=== PATIENT | female | born 1950 | race Caucasian/White ===

== ENCOUNTER 2020-07-11 06:15 | Day surgery (SDC) | payer MEDICARE ==
[~2020-07-11] VITALS: Ht 162.6 cm; Wt 80.0 kg
[~2020-07-11 06:15] MED LIST: SODIUM CHLORIDE 0.9% 1,000 ML ONE
[2020-07-11] MEDS ORDERED: LIDOCAINE 2% 30 ML JELLY TP ONE (06:16)
[2020-07-11] MEDS ORDERED: ALBUTEROL SULFATE 2.5 MG/0.5 ML NEB SOLUTION NEB ONE (06:16)
[2020-07-11] MEDS ORDERED: BENZOCAINE 20% 50 MCG/SPRAY 57 GM TP ONE (06:16)
[2020-07-11] MEDS ORDERED: SODIUM CHLORIDE 0.9% 1,000 ML IV ONE (06:30)
[2020-07-11] MEDS ORDERED: AMLO-257 PO (07:39)
[2020-07-11] MEDS ORDERED: HYDR30CR77 PR (07:39)
[2020-07-11] MEDS ORDERED: LORA10TA7 PO (07:39)
[2020-07-11] MEDS ORDERED: CALC-959 PO (07:39)
[2020-07-11] MEDS ORDERED: LOSA25TA71 PO (07:39)
[2020-07-11] MEDS ORDERED: OMEP20CA13 PO (07:39)
[2020-07-11] MEDS ORDERED: METF-960 PO (07:39)
[2020-07-11] MEDS ORDERED: MONT10TA21 PO (07:39)
[2020-07-11] MEDS ORDERED: CYAN250010 PO (07:39)
[2020-07-11] MEDS ORDERED: PRED20 PO (07:39)
[2020-07-11] MEDS ORDERED: MOME13HF2 IH (07:39)
[2020-07-11] MEDS ORDERED: FENO160T41 PO (07:39)
[2020-07-11] MEDS ORDERED: SIMV-260 PO (07:39)
[2020-07-11] MEDS ORDERED: CORTSOL AU (07:39)
[2020-07-11] MEDS ORDERED: ALBU8.5H8 IH (07:39)
[2020-07-11] MEDS ORDERED: FLUT16H NASAL (07:39)
[2020-07-11] MEDS ORDERED: ALBU0.212 IH (07:39)
[2020-07-11] MEDS ORDERED: ASPI81TA87 PO (07:39)
[2020-07-11] MEDS ORDERED: ALEN70TA65 PO (07:39)
[2020-07-11] MEDS ORDERED: MIDAZOLAM HCL 2 MG/2 ML VIAL ONE (07:55)
[2020-07-11] MEDS ORDERED: FentaNYL CITRATE-PF 100 MCG/2 ML VIAL ONE (07:56)
[2020-07-11] MEDS ORDERED: MethylPREDNISolone SOD SUCC 125 MG/2 ML VIAL IVP ONE (08:30)
[2020-07-11] MEDS ORDERED: MethylPREDNISolone SOD SUCC 125 MG/2 ML VIAL ONE (08:37)
[2020-07-11] MEDS ORDERED: OXYGEN THERAPY IH SCH (20:00)
== END 2020-07-11 10:00 | disposition home or self-care (01) ==
LOC: SURGERY 06:15
PROVIDERS: ATTEND Internal Medicine Critical Care Medicine
DX: J38.4 Edema of larynx (principal); B37.0 Candidal stomatitis; I10 Essential (primary) hypertension; E78.5 Hyperlipidemia, unspecified; I25.10 Atherosclerotic heart disease of native coronary artery without angina pectoris; Z98.890 Other specified postprocedural states; E78.00 Pure hypercholesterolemia, unspecified
CPT/HCPCS: 31623; 31624; 71045; 87015; 87070; 87101; 87205; 87206; 87220; 88108; 88312; J2250; J2930; J3010; J7030; J7613